=== PATIENT | male | born 1960 | race Caucasian/White ===

== ENCOUNTER 2019-02-27 22:07 | Emergency (ER) | payer OTHER ==
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
[2019-02-27] MEDS ORDERED: BACIGUENT PACKET TP ONE (22:49)
[2019-02-27] MEDS ORDERED: KEFLEX 500 MG PO ONE (22:50)
[2019-02-27] MEDS ORDERED: BACIGUENT PACKET ONE (22:53)
[2019-02-27] MEDS ORDERED: KEFLEX 500 MG ONE (22:53)
[2019-02-27 23:09] VITALS: BP 144/78; PULSE 84; O2SAT 98
== END 2019-02-27 23:09 | disposition home or self-care (01) ==
LOC: ED 22:07
DX: M79.89 Other specified soft tissue disorders (principal); S40.862A Insect bite (nonvenomous) of left upper arm, initial encounter; S40.861A Insect bite (nonvenomous) of right upper arm, initial encounter; S80.862A Insect bite (nonvenomous), left lower leg, initial encounter; S80.861A Insect bite (nonvenomous), right lower leg, initial encounter; S30.860A Insect bite (nonvenomous) of lower back and pelvis, initial encounter
CPT/HCPCS: 99283; A9270-GY

== ENCOUNTER 2019-06-16 09:39 | Emergency (ER) | payer OTHER ==
[2019-06-16] MEDS ORDERED: TYLENOL EXTRA STRENGTH 500 MG ONE (10:10)
[2019-06-16] MEDS: TYLENOL EXTRA STRENGTH 500 MG PO STA (10:11)
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
[2019-06-16 11:40] VITALS: BP 134/86; PULSE 57
[2019-06-16 12:24] VITALS: O2SAT 100
== END 2019-06-16 11:43 | disposition home or self-care (01) ==
LOC: ED 09:39
DX: S00.03XA Contusion of scalp, initial encounter (principal); V43.62XA Car passenger injured in collision with other type car in traffic accident, initial encounter; R51 Headache; M54.2 Cervicalgia; M25.511 Pain in right shoulder
CPT/HCPCS: 70450; 71046; 72125; 73030; 99284; A9270-GY

== ENCOUNTER 2021-05-10 18:51 | Emergency (ER) | payer OTHER ==
[2021-05-10] MEDS ORDERED: Sodium Chloride 0.9% 1000 ML 1,000 ML IV STA (19:35)
[2021-05-10] MEDS ORDERED: ZOFRAN ODT 4 MG PO ONE (19:35)
[2021-05-10] MEDS ORDERED: TORAdol 30 mg Injection IM ONE (19:37)
[2021-05-10] MEDS ORDERED: TORAdol 30 mg Injection ONE (19:40)
[2021-05-10] MEDS ORDERED: Zofran 4 MG/2 ML VIAL ONE (19:40)
[2021-05-10] MEDS ORDERED: Sodium Chloride 0.9% 1000 ML 1,000 ML ONE (19:40)
[2021-05-10] MEDS ORDERED: Zofran 4 MG/2 ML VIAL IV ONE (19:42)
[2021-05-10] MEDS ORDERED: TORAdol 30 mg Injection IV ONE (19:42)
[2021-05-10 20:16] LABS: Absolute Neutrophil Ct (ANC) 1.56 (1.4-6.9); BASOPHIL % 0.3 % (0.0-0.4); Basophil (Absolute #) 0.01 (0-0.4); Eosinophil % 5.1 % (0.00-5.0); Eosinophil (Absolute #) 0.15 (0-0.5); Lymphocyte (Absolute #) 0.73 (1.0-4.6); Lymphocytes % 24.7 % (24.0-44.0); Mean Cell Volume 90.9 fl (78-100); Mean Corpuscular Hemoglobin 30.3 pg (26-32); Mean Corpuscular Hgb Concent. 33.3 g/dl (32-36); Mean Platelet Volume 10.7 fl (7.5-11.0); Monocytes % 16.9 % (0.0-12.0); Platelet Count 167 K/mm3 (150-450); Red Blood Count 5.28 M/mm3 (4.1-5.6); Red Cell Distribution Width 12.7 % (11.5-14.0)
--- NOTE | 2021-05-10 20:28 | ERPHSYRPT ---
- History of Present Illness Time Seen by Provider: 05/10/21 19:40 Source: patient Exam Limitations: no limitations Patient Subjective Stated Complaint: pt states "I just don't feel good." Triage Nursing Assessment: pt came into the er via wheelchair; pt is axo x4; c/o "not feeling well"; pt states that he went [facility] and was test for covid; c/o cough, loss of taste, bodyache, fever; cough with deep breathing; clear lung sounds in all lobes; afebrile; active bowel sounds in all quads; pt denies N/V/D; pt states that he lost 15lb in the past 4 days; vitals wnl Physician History: Patient is a 60-year-old male Covid positive presents to our ED with complaints of fever cough and myalgias. Symptoms have been going on for the past 2 to 3 days. Patient states symptoms are worse. No associated nausea or vomiting. No chest pain or shortness of breath. No diarrhea or rash. Symptoms are mild to moderate in intensity. No specific worsening improving factors. Patient looking for symptomatic relief. He voices no other complaints or concerns at this time. Timing/Duration: day(s) Severity: moderate Modifying Factors: Improves With: nothing Associated Symptoms: denies symptoms Allergies/Adverse Reactions: No Known Drug Allergies Allergy (Verified 05/10/21 19:23) Home Medications: No Reportable Medications [No Reported Medications] 05/10/21 [History] Hx Tetanus, Diphtheria Vaccination/Date Given: No Hx Influenza Vaccination/Date Given: No Hx Pneumococcal Vaccination/Date Given: No Travel Risk - International Travel Have you traveled outside of the country in past 3 weeks: No - Coronavirus Screening Are you exhibiting any of the following symptoms?: Yes Symptoms: Fever, Cough: New Onset, Loss of Taste or Smell, Headaches/Body Aches/Fatigue Close contact with a COVID-19 positive Pt in past 14-21 Days: No - Vaccine Status Have you recieved a Covid-19 vaccination: No - Review of Systems Constitutional: No Symptoms, No Fever, No Chills Eyes: No Symptoms Ears, Nose, & Throat: No Symptoms Respiratory: No Symptoms, No Cough, No Dyspnea Cardiac: No Symptoms, No Chest Pain, No Edema, No Syncope Abdominal/Gastrointestinal: No Symptoms, No Abdominal Pain, No Nausea, No Vomiting, No Diarrhea Genitourinary Symptoms: No Symptoms, No Dysuria Musculoskeletal: No Symptoms, No Back Pain, No Neck Pain Skin: No Symptoms, No Rash Neurological: No Symptoms, No Dizziness, No Focal Weakness, No Sensory Changes Psychological: No Symptoms Endocrine: No Symptoms Hematologic/Lymphatic: No Symptoms Immunological/Allergic: No Symptoms All Other Systems: Reviewed and Negative - Past Medical History Pertinent Past Medical History: Yes Neurological History: No Pertinent History ENT History: No Pertinent History Cardiac History: No Pertinent History Respiratory History: No Pertinent History Endocrine Medical History: No Pertinent History Musculoskeletal History: No Pertinent History GI Medical History: No Pertinent History Psycho-Social History: No Pertinent History Male Reproductive Disorders: Prostate Problems - Past Surgical History Past Surgical History: Yes Neuro Surgical History: No Pertinent History Cardiac: No Pertinent History Respiratory: No Pertinent History Gastrointestinal: Hernia Repair Genitourinary: No Pertinent History Musculoskeletal: No Pertinent History Male Surgical History: No Pertinent History - Social History Smoking Status: Former smoker How long have you smoked: years Exposure to second hand smoke: Yes Drug Use: none Patient Lives Alone: No - Nursing Vital Signs Nursing Vital Signs: Initial Vital Signs Temperature 98.8 F 05/10/21 19:29 Pulse Rate 66 05/10/21 19:29 Respiratory Rate 18 05/10/21 19:29 Blood Pressure 123/77 05/10/21 19:29 O2 Sat by Pulse Oximetry 96 05/10/21 19:29 Pain Scale Pain Intensity 8 - Physical Exam General Appearance: no apparent distress, alert Eye Exam: PERRL/EOMI, eyes nml inspection Ears, Nose, Throat Exam: normal ENT inspection, TMs normal, pharynx normal, moist mucous membranes Neck Exam: normal inspection, non-tender, supple, full range of motion Respiratory Exam: normal breath sounds, lungs clear, airway intact, No respiratory distress Cardiovascular Exam: regular rate/rhythm, normal heart sounds, normal peripheral pulses Gastrointestinal/Abdomen Exam: soft, normal bowel sounds, No tenderness, No mass Back Exam: normal inspection, normal range of motion, No CVA tenderness, No vertebral tenderness Extremity Exam: normal inspection, normal range of motion, pelvis stable Neurologic Exam: alert, oriented x 3, cooperative, normal mood/affect, nml cerebellar function, nml station & gait, sensation nml, No motor deficits Skin Exam: normal color, warm, dry, No rash Lymphatic Exam: No adenopathy SpO2 Interpretation: normal, airway management int. SpO2: 99 O2 Delivery: Room Air - Course Nursing assessment & vital signs reviewed: Yes Ordered Tests: Active Orders 24 hr Category Date Time Status IV Insertion STAT Care 05/10/21 19:35 Active CHEST 1 VIEW (PORTABLE) Stat Exams 05/10/21 19:36 Stop Req BLOOD CULTURE Stat Lab 05/10/21 19:36 Ordered CBC W DIFF Stat Lab 05/10/21 20:10 Completed CMP Stat Lab 05/10/21 20:00 Completed TROPONIN Q3H Lab 05/10/21 19:45 Completed TROPONIN Q3H Lab 05/10/21 22:45 Ordered TROPONIN Q3H Lab 05/11/21 01:45 Ordered TROPONIN Q3H Lab 05/11/21 04:45 Ordered TROPONIN Q3H Lab 05/11/21 07:45 Ordered UA W/RFX UR CULTURE Stat Lab 05/10/21 19:36 Ordered Medication Summary Discontinued Medications Generic Name Dose Route Start Last Admin Trade Name Freq PRN Reason Stop Dose Admin Sodium Chloride 1,000 mls @ 999 mls/hr 05/10/21 19:35 05/10/21 19:47 Sodium Chloride 0.9% 1000 Ml IV 05/10/21 20:35 999 mls/hr .Q1H1M STA Administration Sodium Chloride Confirm 05/10/21 19:40 Sodium Chloride 0.9% 1000 Ml Administered 05/10/21 19:41 Dose 1,000 mls @ ud .ROUTE .STK-MED ONE Ketorolac Tromethamine 30 mg 05/10/21 19:37 05/10/21 19:55 Toradol 30 Mg Injection IM 05/10/21 19:38 Not Given STAT ONE Ketorolac Tromethamine Confirm 05/10/21 19:40 Toradol 30 Mg Injection Administered 05/10/21 19:41 Dose 30 mg .ROUTE .STK-MED ONE Ketorolac Tromethamine 30 mg 05/10/21 19:42 05/10/21 19:46 Toradol 30 Mg Injection IV 05/10/21 19:43 30 mg STAT ONE Administration Ondansetron HCl 4 mg 05/10/21 19:35 05/10/21 19:56 Zofran Odt 4 Mg PO 05/10/21 19:36 Not Given STAT ONE Ondansetron HCl Confirm 05/10/21 19:40 Zofran 4 Mg/2 Ml Vial Administered 05/10/21 19:41 Dose 4 mg .ROUTE .STK-MED ONE Ondansetron HCl 4 mg 05/10/21 19:42 05/10/21 19:46 Zofran 4 Mg/2 Ml Vial IV 05/10/21 19:43 4 mg STAT ONE Administration Lab/Rad Data: Laboratory Result Diagrams 05/10/21 20:10 05/10/21 20:00 Laboratory Results 05/10/21 05/10/21 05/10/21 Range/Units 20:10 20:00 19:45 WBC 3.0 L (4.0-10.5) K/mm3 RBC 5.28 (4.1-5.6) M/mm3 Hgb 16.0 (12.5-18.0) gm/dl Hct 48.0 (42-50) % MCV 90.9 (78-100) fl MCH 30.3 (26-32) pg MCHC 33.3 (32-36) g/dl RDW 12.7 (11.5-14.0) % Plt Count 167 (150-450) K/mm3 MPV 10.7 (7.5-11.0) fl Gran % 53.0 (36.0-66.0) % Eos # (Auto) 0.15 (0-0.5) Absolute Lymphs (auto) 0.73 L (1.0-4.6) Absolute Monos (auto) 0.50 (0.0-1.3) Lymphocytes % 24.7 (24.0-44.0) % Monocytes % 16.9 H (0.0-12.0) % Eosinophils % 5.1 H (0.00-5.0) % Basophils % 0.3 (0.0-0.4) % Absolute Granulocytes 1.56 (1.4-6.9) Basophils # 0.01 (0-0.4) Sodium 139 (137-145) mmol/L Potassium 3.7 (3.5-5.1) mmol/L Chloride 103 (98-107) mmol/L Carbon Dioxide 26 (22-30) mmol/L Anion Gap 13.8 (5-15) MEQ/L BUN 14 (9-20) mg/dL Creatinine 1.16 (0.66-1.25) mg/dL Estimated GFR > 60.0 ML/MIN Glucose 123 H (74-106) mg/dL Calcium 8.5 (8.4-10.2) mg/dL Total Bilirubin 0.60 (0.2-1.3) mg/dL AST 31 (17-59) U/L ALT 24 (0-50) U/L Alkaline Phosphatase 58 (38-126) U/L Troponin I < 0.012 (0.000-0.034) ng/mL Serum Total Protein 6.9 (6.3-8.2) g/dL Albumin 4.0 (3.5-5.0) g/dL - Progress Progress: improved Progress Note: Patient reassessed. He feels well. Patient states he is ready for discharge. IV fluids and medications infused. Troponin negative. Patient ambulated in his room. Patient maintained a normal sat. He had no complaints of chest pain or shortness of breath. Patient is mildly leukopenic as is typical and Covid infections. Patient has no urinary tract complaints. Patient agrees to follow-up with his primary care doctor within 48 hours for reevaluation. Portions of this note were created with voice recognition technology. There may be grammatical, spelling, punctuation or sound alike errors 05/10/21 20:47 05/10/21 20:49 Counseled pt/family regarding: lab results, diagnosis, need for follow-up - Departure Departure Disposition: Home Clinical Impression: COVID-19, Viral syndrome Condition: Stable Critical Care Time: No Referrals: ANN MARIE KRUSE [Primary Care Provider] - Additional Instructions: Discharge/Care Plan TERRY DAVISON was seen on 05/10/21 in the Emergency Room. The patient was counseled regarding Diagnosis,Lab results, Imaging studies, need for follow up and when to return to the Emergency Room. Prescriptions given: Discharge Note I have spoken with the patient and/or caregivers. I have explained the patient's condition, diagnosis and treatment plan based on the information available to me at this time. I have answered the patient's and/or caregiver's questions and addressed any concerns. The patient and/or caregivers have as good understanding of the patient's diagnosis, condition and treatment plan as can be expected at this point. The vital signs have been stable. The patient's condition is stable and appropriate for discharge from the emergency department. The patient will pursue further outpatient evaluation with the primary care physician or other designated or consulting physician as outlined in the discharge instructions. The patient and/or caregivers are agreeable to this plan of care and follow-up instructions have been explained in detail. The patient and/or caregivers have received these instruction. The patient/and or caregivers are aware that any significant change in condition or worsening of symptoms should prompt an immediate return to this or the closest emergency department or call 911.
[2021-05-10 20:29] LABS: ALKALINE PHOSPHATASE 58 U/L (38-126); ANION GAP 13.8 MEQ/L (5-15); BLOOD UREA NITROGEN 14 mg/dL (9-20); CHLORIDE 103 mmol/L (98-107); Calcium 8.5 mg/dL (8.4-10.2); Carbon Dioxide 26 mmol/L (22-30); Creatinine 1 1.16 mg/dL (0.66-1.25); EST GLOMERULAR FILTRATION RATE > 60.0 ML/MIN; Glucose 123 mg/dL (74-106); Potassium 3.7 mmol/L (3.5-5.1); SGOT/AST 31 U/L (17-59); SGPT/ALT 24 U/L (0-50); SODIUM 139 mmol/L (137-145); Total Protein 6.9 g/dL (6.3-8.2)
[2021-05-10 20:52] VITALS: BP 116/71; PULSE 60; O2SAT 96
== END 2021-05-10 20:57 | disposition home or self-care (01) ==
LOC: ED 18:51
DX: B34.9 Viral infection, unspecified (principal)
CPT/HCPCS: 36000; 36415; 80053; 84484; 85025; 87040; 93005; 96360; 96374; 96375; 99284; J1885; J2405